=== PATIENT | female | born 1995 | race Two or more races ===

== ENCOUNTER 2019-05-08 00:19 | Emergency (ER) | payer MEDICAID ==
[~2019-05-08] VITALS: Ht 160 cm; Wt 47.6 kg
--- NOTE | 2019-05-08 00:50 | NUR ---
BLOOD COLLECTED FOR LAB
--- NOTE | 2019-05-08 00:58 | NUR ---
URINE SENT TO LAB FOR SPECIMEN
[2019-05-08 01:00] LABS: BASOPHILS % (AUTO) 0.4 % (0.0-2.0); EOSINOPHILS % (AUTO) 7.1 % (0.0-6.0); HEMATOCRIT 39 % (33-45); LYMPHOCYTES # (AUTO) 3.2 /CMM (0.8-4.8); LYMPHOCYTES % (AUTO) 35.7 % (20.0-44.0); MEAN CORPUSCULAR HGB CONC 33 g/dl (31.0-36.0); MEAN CORPUSCULAR VOLUME 94 fL (82-100); MONOCYTES # (AUTO) 0.4 /CMM (0.1-1.30); MONOCYTES % (AUTO) 4.4 % (2.0-12.0); NEUTROPHILS # (AUTO) 4.7 /CMM (1.8-8.9); NEUTROPHILS % (AUTO) 52.4 % (43.0-81.0); PLATELET COUNT (AUTO) 326 /CMM (150-450); RED BLOOD CELL COUNT(AUTO) 4.17 MIL/uL (4.0-5.2); WHITE BLOOD COUNT (AUTO) 8.9 K/uL (4.3-11.0)
[2019-05-08] MEDS ORDERED: KETOROLAC TROMETHAMINE INJ 30 MG/ML VIAL IV ONE (01:00)
--- NOTE | 2019-05-08 01:01 | NUR ---
PT CAME TO ER W/ MOM C/O LEFT LOWER BACK PAIN. PT CAN BE SEEN GRASPING SITE 02/22 PAIN. AAOX4. NO SOB. NO PAIN UPON URINATION. CONNECTED TO MONITOR.
[2019-05-08 01:17] LABS: CALCIUM, SERUM 9.3 mg/dL (8.5-10.1); CREATININE 0.7 mg/dL (0.6-1.3); POTASSIUM 3.5 mmol/L (3.5-5.1)
[2019-05-08 01:18] LABS: APPEARANCE,URINE Clear (CLEAR); BILIRUBIN,URINE Negative (NEGATIVE); BLOOD, URINE Small Ery/uL (NEGATIVE); COLOR,URINE Yellow (YELLOW); KETONES,URINE Negative (NEGATIVE); LEUKOCYTE ESTERASE ,URINE Trace (NEGATIVE); NITRITE, URINE Negative (NEGATIVE); PROTEIN,URINE Negative (NEGATIVE); UGLUCOSE Negative (NEGATIVE); UROBILINOGEN,URINE 0.2 EU/dL (0.2)
[2019-05-08] MEDS ORDERED: KETOROLAC TROMETHAMINE 15 MG/ML VIAL ONE (01:21)
--- NOTE | 2019-05-08 01:25 | NUR ---
PATIENT TAKEN TO CT
[2019-05-08 01:37] VITALS: BP 115/54
--- NOTE | 2019-05-08 01:37 | NUR ---
Rosalind garcia in EDM - 05/08/19 at 0145 by SHUKRI Patient discharged to home in stable condition. Written and verbal after care instructions given. Patient verbalizes understanding of instruction.
--- NOTE | 2019-05-08 01:37 | NUR ---
Note satinderone in EDM - 05/08/19 at 0137 by SHUKRI IV removed. Catheter intact and site benign. Pressure and 4x4 applied to site. No bleeding noted. Patient discharged to home in stable condition. Written and verbal after care instructions given. Patient verbalizes understanding of instruction.
[2019-05-08 01:42] LABS: BACTERIA,URINE Few /HPF (None Seen); SQUAMOUS EPITHELIAL CELL,UR Few /HPF (None Seen); WBC,URINE 21-50 /HPF (0-3)
--- NOTE | 2019-05-08 02:29 | NUR ---
IV removed. Catheter intact and site benign. Pressure and 4x4 applied to site. No bleeding noted. Patient discharged to home in stable condition. Written and verbal after care instructions given. Patient verbalizes understanding of instruction.
== END 2019-05-08 01:38 | disposition home or self-care (01) ==
LOC: ER 00:22
DX: M54.6 Pain in thoracic spine (principal)
CPT/HCPCS: 36415; 74176; 80048; 81001; 84703; 85025; 87086; 96374; 99284; J1885; 81000-TC